=== PATIENT | male | born 1970 | race Caucasian/White ===

== ENCOUNTER 2023-08-24 16:35 | Emergency (ER) | payer OTHER ==
[2023-08-24] MEDS ORDERED: Lidocaine 1% (PF) 30 ML VIAL ONE (17:08)
== END 2023-08-24 19:17 | disposition home or self-care (01) ==
LOC: ERS 16:35
DX: S91.114A Laceration without foreign body of right lesser toe(s) without damage to nail, initial encounter (principal); S99.921A Unspecified injury of right foot, initial encounter; F17.200 Nicotine dependence, unspecified, uncomplicated; W28.XXXA Contact with powered lawn mower, initial encounter
CPT/HCPCS: 11760; 12002; J2001

== ENCOUNTER 2023-09-15 14:26 | Emergency (ER) | payer SELFPAY | END 2023-09-15 17:57 | disposition home or self-care (01) | LOC: ERS 14:26 | DX: Z48.02 Encounter for removal of sutures (principal); F17.200 Nicotine dependence, unspecified, uncomplicated ==

== ENCOUNTER 2023-09-19 16:05 | Emergency (ER) | payer SELFPAY | END 2023-09-19 16:35 | disposition home or self-care (01) | LOC: ERS 16:05 | DX: S91.311D Laceration without foreign body, right foot, subsequent encounter (principal); X58.XXXD Exposure to other specified factors, subsequent encounter ==